=== PATIENT | female | born 1985 | race Two or more races ===

== ENCOUNTER 2018-08-02 20:21 | Emergency (ER) | payer BC ==
--- NOTE | 2018-08-02 23:12 | ER Document Report ---
ED Medical Screen (RME) - General Chief Complaint: Abdominal Pain Stated Complaint: ABDOMINAL PAIN Time Seen by Provider: 08/02/18 23:09 Notes: Patient is a 32-year-old female presents to the emergency department complaining of generalized suprapubic and lower back pain. Patient states her period started on Sunday but she feels as though it is very light and not like her normal period. Patient feels as though she may be . Patient did not take any at home test. Patient's also complaining of a white malodorous vaginal discharge prior to her menstrual cycle starting. Past medical history: None Medications: None Allergies: None ABDOMEN: Soft, non-tender. Mild suprapubic tenderness non-distended. Bowel sounds present in all 4 quadrants. BACK: no cervical, thoracic, lumbar midline tenderness. No saddle anesthesia, normal distal neurovascular exam. Bilateral CVA tenderness noted I have greeted and performed a rapid initial assessment of this patient. A comprehensive ED assessment and evaluation of the patient, analysis of test results and completion of the medical decision making process will be conducted by additional ED providers. TRAVEL OUTSIDE OF THE [place] IN LAST 30 DAYS: No - Related Data Allergies/Adverse Reactions: No Known Allergies Allergy (Verified 08/02/18 20:38) Past Medical History - Social History Frequency of alcohol use: Occasional Drug Abuse: Marijuana, Prescription drugs Renal/ Medical History: Denies: Hx Peritoneal Dialysis Physical Exam - Vital signs Vitals: Temp Pulse Resp BP Pulse Ox 98.0 F 61 16 131/94 H 100 08/02/18 21:14 08/02/18 21:14 08/02/18 21:14 08/02/18 21:14 08/02/18 21:14 Course - Vital Signs Vital signs: Temp Pulse Resp BP Pulse Ox 98.0 F 61 16 131/94 H 100 08/02/18 21:14 08/02/18 21:14 08/02/18 21:14 08/02/18 21:14 08/02/18 21:14
[2018-08-03 00:08] LABS: APPEARANCE,URINE CLEAR; BILIRUBIN,URINE NEGATIVE (NEGATIVE); COLOR,URINE YELLOW; GLUCOSE, URINE NEGATIVE (NEGATIVE); KETONES,URINE NEGATIVE (NEGATIVE); LEUKOCYTE ESTERASE,URINE NEGATIVE (NEGATIVE); NITRITE,URINE NEGATIVE (NEGATIVE); PROTEIN,URINE NEGATIVE (NEGATIVE)
[2018-08-03 01:07] LABS: CHLAM PCR DETECTED (NOT DETECT); GON PCR NOT DETECTED (NOT DETECT)
[2018-08-03] MEDS ORDERED: LIDOCAINE 1% INJ-PF (10 MG/ML) 30 ML SDV INJ ONE (02:00)
[2018-08-03] MEDS ORDERED: CEFTRIAXONE INJ 250 MG VIAL IM ONE (02:00)
[2018-08-03] MEDS ORDERED: AZITHROMYCIN 250 MG TABLET PO ONE (02:00)
[2018-08-03 02:12] LABS: EPITHELIALS (WET MOUNT) 3+ EPITHELIALS SEEN; RBCS (WET MOUNT) NO RBCS SEEN; T.VAGINALIS (WET MOUNT) TRICHOMONAS SEEN; WBCS (WET MOUNT) RARE WBCS SEEN; YEAST (WET MOUNT) NO YEAST SEEN
[2018-08-03] MEDS ORDERED: METRONIDAZOLE 500 MG TABLET PO ONE (03:11)
--- NOTE | 2018-08-03 03:12 | ER Document Report ---
HPI - HPI Patient complains to provider of: Vaginal discharge Time Seen by Provider: 08/02/18 23:09 Pain Level: 3 Context: Patient is a 32-year-old female presents to the emergency department complaining of generalized suprapubic and lower back pain. Patient states her period started on Sunday but she feels as though it is very light and not like her normal period. Patient feels as though she may be . Patient did not take any at home test. Patient's also complaining of a white malodorous vaginal discharge prior to her menstrual cycle starting. Past medical history: None Medications: None Allergies: None - REPRODUCTIVE Reproductive: DENIES: : - DERM Skin Color: Normal, [place] Past Medical History - General Information source: Patient - Social History Smoking Status: Current Every Day Smoker Frequency of alcohol use: Occasional Drug Abuse: Marijuana, Prescription drugs Family History: Reviewed & Not Pertinent Patient has suicidal ideation: No Patient has homicidal ideation: No Renal/ Medical History: Denies: Hx Peritoneal Dialysis Vertical Provider Document - CONSTITUTIONAL Agree With Documented VS: Yes Notes: GENERAL: Alert, interacts well. No acute distress. HEAD: Normocephalic, atraumatic. EYES: Pupils equal, round, and reactive to light. Extraocular movements intact. ENT: Oral mucosa moist, tongue midline. NECK: Full range of motion. Supple. Trachea midline. LUNGS: Clear to auscultation bilaterally, no wheezes, rales, or rhonchi. No respiratory distress. HEART: Regular rate and rhythm. No murmur ABDOMEN: Soft, non-tender. Non-distended. Bowel sounds present in all 4 quadrants.no McBurney's point tenderness, no Castillo sign noted. Minor suprapubic tenderness EXTREMITIES: Moves all 4 extremities spontaneously. No edema, normal radial and dorsalis pedis pulses bilaterally. No cyanosis. BACK: no cervical, thoracic, lumbar midline tenderness. No saddle anesthesia, normal distal neurovascular exam. Mild generalized paraspinal lower back tenderness NEUROLOGICAL: Alert and oriented x3. Normal speech. cranial nerves II through XII grossly intact PSYCH: Normal affect, normal mood. SKIN: Warm, dry, normal turgor. No rashes or lesions noted. - INFECTION CONTROL TRAVEL OUTSIDE OF THE [place] IN LAST 30 DAYS: No Course - Re-evaluation Re-evalutation: Patient's pelvic exam did reveal whitish yellow discharge in the cul-de-sac. No cervical motion tenderness noted, no adnexal tenderness noted bilaterally. Patient was initially treated prophylactically for gonorrhea and chlamydia. Her chlamydia Test then came back positive. Patient's wet mount also showed signs of Trichomonas, will send patient home with treatments. Discussed talking to patient sexual partners about being tested and treated. Patient voices understanding. Close return precautions discussed. - Vital Signs Vital signs: Temp Pulse Resp BP Pulse Ox 98.0 F 61 16 131/94 H 100 08/02/18 21:14 08/02/18 21:14 08/02/18 21:14 08/02/18 21:14 08/02/18 21:14 - Laboratory Laboratory results interpreted by fl: 08/02/18 08/02/18 23:21 23:21 Urine Urobilinogen 2.0 H Chlamydia DNA (PCR) DETECTED H Discharge - Discharge Clinical Impression: Trichomonas infection, Chlamydia Condition: Stable Disposition: HOME, SELF-CARE Instructions: Chlamydia ([facility]), Trichomonas Infection ([facility]) Additional Instructions: As we discussed you have been seen and treated in the emergency department for chlamydia and trichomonas. Please talk to all of your sexual contacts as he should also be tested and treated. Please return to the emergency room for any other concerning symptoms. Prescriptions: Metronidazole [Flagyl] 500 mg PO BID 7 Days #14 tablet
[2018-08-03 03:30] VITALS: BP 132/90
== END 2018-08-03 03:38 | disposition home or self-care (01) ==
LOC: EDBD → ER 20:21
DX: A59.01 Trichomonal vulvovaginitis (principal); A74.9 Chlamydial infection, unspecified; R10.30 Lower abdominal pain, unspecified; M54.5 Low back pain; F17.200 Nicotine dependence, unspecified, uncomplicated
CPT/HCPCS: 99283; 96372; 87210; 81025; 81001; 87491; 87591; J3490; J0696

== ENCOUNTER 2020-01-16 16:43 | Emergency (ER) | payer SELFPAY ==
[2020-01-16] MEDS ORDERED: CEFTRIAXONE INJ 1000 MG VIAL IM ONE (18:27)
[2020-01-16] MEDS ORDERED: LIDOCAINE 1% INJ-PF (10 MG/ML) 30 ML SDV INJ ONE (18:27)
--- NOTE | 2020-01-16 18:51 | ER Document Report ---
HPI - HPI Time Seen by Provider: 01/16/20 18:23 Pain Level: 3 Notes: 34-year-old female presents to emergency room for complaints of dental caries for the last week. Patient states that she has been able to get into a dentist. Patient smokes cigarettes approximately 5 a day. Worse with time, nothing makes better. States she is going to be seeing a dentist next week she has an appointment. Reports a little bit of facial swelling on the right side. Denies any new medication foods or travel. Has not tried any [id number] medications. Denies fevers, chills, chest pain,palpitations, shortness of breath, dyspnea, nausea, vomiting, diarrhea, abdominal pain, hematuria,blurred vision, double vision, loss of vision, speech changes, LH, dizziness, syncope, headaches, wheezing, ST, URI, neck pain, weakness, bowel or bladder dysfunction, saddle anesthesia, numbness or tingling in bilateral upper or lower extremities equally, muscle paralysis, weakness in bilateral upper or lower extremities equally or rash. Denies IV drug use. MEDICATIONS: I agree with the patient medications as charted by the RN. ALLERGIES: I agree with the allergies as charted by the RN. PAST MEDICAL HISTORY/PAST SURGICAL HISTORY: Reviewed and agree as charted by RN. SOCIAL HISTORY: Reviewed and agree as charted by RN. FAMILY HISTORY: No significant familial comorbid conditions directly related to patient complaint EXAM: Reviewed vital signs as charted by RN. REVIEW OF SYSTEMS:reviewed vital signs by RN CONSTITUTIONAL : Denies fever, chills, or sweats. Denies recent illness. EENT: Denies eye, ear, throat, or mouth pain or symptoms. Denies nasal or sinus congestion or discharge. Denies throat, tongue, or mouth swelling or difficulty swallowing. reports dental pain CARDIOVASCULAR: Denies chest pain. Denies palpitations or racing or irregular heart beat. Denies ankle edema. RESPIRATORY: Denies cough, cold, or chest congestion. Denies shortness of breath, difficulty breathing, or wheezing. GASTROINTESTINAL: Denies abdominal pain or distention. Denies nausea, vomiting, or diarrhea. Denies blood in vomitus, stools, or per rectum. Denies black, tarry stools. Denies constipation. GENITOURINARY: Denies difficulty urinating, painful urination, burning, frequency, blood in urine, or discharge. FEMALE GENITOURINARY: Denies vaginal bleeding, heavy or abnormal periods, irregular periods. Denies vaginal discharge or odor. MUSCULOSKELETAL: Denies back or neck pain or stiffness. Denies joint pain or swelling. SKIN: Denies rash, lesions or sores. HEMATOLOGIC : Denies easy bruising or bleeding. LYMPHATIC: Denies swollen, enlarged glands. NEUROLOGICAL: Denies confusion or altered mental status. Denies passing out or loss of consciousness. Denies dizziness or lightheadedness. Denies headache. Denies weakness or paralysis or loss of use of either side. Denies problems with gait or speech. Denies sensory loss, numbness, or tingling. Denies seizures. PSYCHIATRIC: Denies anxiety or stress. Denies depression, suicidal ideation, or homicidal ideation. ALL OTHER SYSTEMS REVIEWED AND NEGATIVE. PHYSICAL EXAMINATION: GENERAL: Well-appearing, well-nourished and in no acute distress. HEAD: Atraumatic, normocephalic. EYES: Pupils equal round and reactive to light, extraocular movements intact, conjunctiva are normal. ENT: Nares patent, oropharynx clear without exudates. Moist mucous membranes. TM with effusion bilaterally, no erythema. TMs intact. #30 gingiva with swelling, erythema and induration. No drainage or open wounds. No fluctuance. scant facial swelling on right. Poor oral dentition, right lower jaw with moderate dental caries, no definite swelling or effusion. no trismus noted. Uvula is midline NECK: Normal range of motion, supple without lymphadenopathy LUNGS: Breath sounds clear to auscultation bilaterally and equal. No wheezes rales or rhonchi. HEART: Regular rate and rhythm without murmurs ABDOMEN: Soft, nontender, nondistended abdomen. No guarding, no rebound. No masses appreciated. Female : deferred Musculoskeletal: Normal range of motion, no pitting or edema. No cyanosis. NEUROLOGICAL: Cranial nerves grossly intact. Normal speech, normal gait. Normal sensory, motor exams PSYCH: Normal mood, normal affect. SKIN: Warm, Dry, normal turgor, no rashes or lesions noted. Dictation was performed using [employer] voice recognition software - REPRODUCTIVE Reproductive: DENIES: : Past Medical History - General Information source: Patient - Social History Smoking Status: Current Every Day Smoker Frequency of alcohol use: None Drug Abuse: None Family History: Reviewed & Not Pertinent Patient has homicidal ideation: No Renal/ Medical History: Denies: Hx Peritoneal Dialysis Psychiatric Medical History: Reports: Hx Depression Vertical Provider Document - CONSTITUTIONAL Agree With Documented VS: Yes Exam Limitations: No Limitations General Appearance: WD/WN - INFECTION CONTROL TRAVEL OUTSIDE OF THE [place] IN LAST 30 DAYS: No Course - Re-evaluation Re-evalutation: 01/16/20 18:53 Vital stable no distress. Nurses note reviewed. Patient given 1 g Rocephin for antibiotic therapy for concern of facial swelling due to moderate dental caries. Discussed applying heat 20 minutes on 20 minutes off several times a day. Alternate between Tylenol and ibuprofen for pain control. Advised to follow-up with dentist in the next 24 to 48 hours. After performing a Medical Screening Examination, I estimate there is LOW risk for a DEEP SPACE INFECTION (e.g., JANELLE'S ANGINA OR RETROPHARYNGEAL ABSCESS), MENINGITIS, INTRACRANIAL HEMORRHAGE, or AIRWAY COMPROMISE, thus I consider the discharge disposition reasonable. Also, there is no evidence or peritonitis, sepsis, or toxicity. I have reevaluated this patient multiple times and no significant life threatening changes are noted. The patient and I have discussed the diagnosis and risks, and we agree with discharging home with close follow-up with the understanding that symptoms and presentations can change. We also discussed returning to the Emergency Department immediately if new or worsening symptoms occur. We have discussed the symptoms which are most concerning (e.g., changing or worsening pain, trouble swallowing or breathing, neck stiffness or fever) that necessitate immediate return. - Vital Signs Vital signs: Temp Pulse Resp BP Pulse Ox 99.3 F 82 20 141/81 H 100 01/16/20 18:20 01/16/20 16:57 01/16/20 16:57 01/16/20 16:57 01/16/20 16:57 Discharge - Discharge Clinical Impression: Dental caries Condition: Stable Disposition: HOME, SELF-CARE Instructions: Dentist, Dental Infection or Abscess ([facility]), Rocephin ([facility]) Additional Instructions: You were given 1 g Rocephin IM today for your dental caries. Please follow-up with a dentist within the next 24 to 48 hours. Take antibiotics as directed. Follow soft diet. Alternate between Tylenol and ibuprofen for pain control. Return immediately for any new or worsening symptoms. Follow up with primary care provider, call tomorrow to make followup appointment. Prescriptions: Penicillin V Potassium [Penicillin Vk 500 mg Tablet] 500 mg PO BID #20 tablet Forms: Return to Work Referrals: MARJORIE WATSON DO [NO LOCAL MD] - Follow up as needed
[2020-01-16 18:59] VITALS: BP 144/82
== END 2020-01-16 19:00 | disposition home or self-care (01) ==
LOC: ER 16:43
DX: K02.9 Dental caries, unspecified (principal); R22.0 Localized swelling, mass and lump, head; F17.210 Nicotine dependence, cigarettes, uncomplicated
CPT/HCPCS: 99283; 96372; J3490; J0696